=== PATIENT | female | born 2000 | race Native Hawaiian/Other Pacific Islander ===

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

== ENCOUNTER 2018-03-20 18:30 | Emergency (ER) | payer OTHER ==
[~2018-03-20] VITALS: Ht 157.5 cm; Wt 65.8 kg
[2018-03-20 18:30] VITALS: TEMP 98.3
[2018-03-20 19:00] VITALS: BP 121/76
[2018-03-20 19:38] LABS: PLATELET COUNT 262 K/uL (152-353)
[2018-03-20 19:50] LABS: POTASSIUM 3.8 mmol/L (3.6-5.2)
== END 2018-03-20 19:51 | disposition home or self-care (01) ==
LOC: ED 18:30
PROVIDERS: Family Medicine
DX: F19.10 Other psychoactive substance abuse, uncomplicated (principal)
CPT/HCPCS: 36415; 80053; 80320; 85027; 99283

== ENCOUNTER 2018-03-24 20:04 | Emergency (ER) | payer OTHER ==
[~2018-03-24] VITALS: Ht 157.5 cm; Wt 65.8 kg
[2018-03-24 20:38] LABS: PLATELET COUNT 327 K/uL (152-353)
[2018-03-24 20:47] LABS: POTASSIUM 3.6 mmol/L (3.6-5.2); SODIUM 143 mmol/L (136-145)
[2018-03-24 21:05] VITALS: BP 102/60; TEMP 98.1
== END 2018-03-24 20:52 | disposition home or self-care (01) ==
LOC: ED 20:04
PROVIDERS: Emergency Medicine
DX: R45.851 Suicidal ideations (principal)
CPT/HCPCS: 36415; 80053; 80307; 80320; 80329; 81025; 85027; 93005; 99285

== ENCOUNTER 2018-03-26 18:15 | Outpatient (CLI) | payer OTHER | END 2018-03-26 18:27 | disposition short-term general hospital (02) | LOC: AMB 18:15 | DX: R55 Syncope and collapse (principal); F19.10 Other psychoactive substance abuse, uncomplicated | CPT/HCPCS: A0425; A0429 ==

== ENCOUNTER 2020-05-11 17:40 | Emergency (ER) | payer OTHER ==
[~2020-05-11] VITALS: Ht 157.5 cm; Wt 63.0 kg
[2020-05-11 18:20] VITALS: BP 124/75; TEMP 97.6
== END 2020-05-11 18:20 | disposition home or self-care (01) ==
LOC: ED 17:40
DX: H10.89 Other conjunctivitis (principal)
CPT/HCPCS: 99282